=== PATIENT | female | born 1955 | race African-American/Black ===

== ENCOUNTER 2021-08-17 12:07 | Emergency (ER) | payer MEDICAID ==
[~2021-08-17] VITALS: Ht 162.6 cm; Wt 90.9 kg
[2021-08-17] MEDS ORDERED: PERMETHRIN 5% 60 GM CREAM TP ONE (14:15)
[2021-08-17] MEDS ORDERED: IBUPROFEN 600 MG TABLET PO ONE (14:30)
[2021-08-17 15:56] LABS: GLUCOSE,POINT OF CARE 145 MG/DL (70-110)
[2021-08-17 18:45] VITALS: BP 124/76
== END 2021-08-17 18:46 | disposition home or self-care (01) ==
LOC: EMS 12:32
DX: G89.29 Other chronic pain (principal); M54.50 Low back pain, unspecified; B85.2 Pediculosis, unspecified; I10 Essential (primary) hypertension; E11.9 Type 2 diabetes mellitus without complications; J45.909 Unspecified asthma, uncomplicated; Z59.00 Homelessness unspecified
CPT/HCPCS: 82948; 82962; 99283